=== PATIENT | male | born 1990 | race African-American/Black ===

== ENCOUNTER 2020-02-07 12:29 | Emergency (ER) | payer OTHER ==
[~2020-02-07] VITALS: Ht 167.6 cm; Wt 108.9 kg
[2020-02-07] MEDS ORDERED: PREDNISONE 20 M20 MG PO (13:30)
[2020-02-07] MEDS ORDERED: PROAIR HFA8.5 GM INH (13:30)
[2020-02-07 15:11] LABS: BASOPHILS 0.7 % (0.0-2.0); HEMOGLOBIN 15.2 gm/dL (14.0-18.0)
[2020-02-07 15:13] LABS: EOSINOPHILS 3.6 % (0.0-3.0); MCH 30.8 pg (26.0-34.0); MCHC 33.1 g/dL (28.0-37.0); MONOCYTES 11.8 % (1.0-8.0); PLATELET COUNT 253 thou/uL (150-400); POLYS 38.9 % (36.0-66.0); RBC 4.95 mil/uL (4.50-6.00); RDW 14.2 % (10.5-14.5)
[2020-02-07 15:17] LABS: ANION GAP 9 mmol/L (7-16); BUN 9 mg/dL (7-18); CALCIUM 9.1 mg/dL (8.5-10.1); CHLORIDE 105 mmol/L (98-107); CO2 28 mmol/L (21-32); GLUCOSE 91 mg/dL (74-106); POTASSIUM 4.8 mmol/L (3.5-5.1); SODIUM 142 mmol/L (136-145)
[2020-02-07] MEDS ORDERED: INDOMETHACIN 2525 MG PO (15:22)
[2020-02-07 15:26] LABS: ALBUMIN 3.6 g/dL (3.4-5.0); SGOT 15 U/L (15-37); SGPT 29 U/L (30-65); TOTAL BILIRUBIN 0.6 mg/dL (0.2-1.0); TOTAL PROTEIN 7.5 g/dL (6.4-8.2); TROPONIN-I <0.06 ng/mL (<0.06)
--- NOTE | 2020-02-07 15:33 | EKG ---
[facility] [address] [place] [address] ELECTROCARDIOGRAM REPORT Name: MAX LANDAVERDE Room #: [facility] M.RAlex#: [id number] Admission: Attend Phys: Discharge: Date of : [birth year] Report #: [id number] <ELECTRONICALLY SIGNED> By: Gus Johnson MD, FACC 02/07/20 1533 10 1311 Gus Johnson MD, FACC /EPI
[2020-02-07] MEDS ORDERED: ATIVAN0.5 M1 PO (15:36)
[2020-02-07 15:47] VITALS: BP 129/87
== END 2020-02-07 15:47 | disposition home or self-care (01) ==
LOC: ER 12:29
PROVIDERS: Physician Assistant
DX: U07.1 COVID-19 (principal); R07.89 Other chest pain; Z91.010 Allergy to peanuts; Z91.013 Allergy to seafood

== ENCOUNTER 2020-02-14 07:54 | Emergency (ER) | payer OTHER ==
[~2020-02-14] VITALS: Ht 167.6 cm; Wt 108.0 kg
[~2020-02-14 07:54] MED LIST: ATIVAN0.5 M1 PO; INDOMETHACIN 2525 MG PO; PREDNISONE 20 M20 MG PO; PROAIR HFA8.5 GM INH
[2020-02-14 08:58] LABS: ABSOLUTE NEUTROPHILS 11.1 thou/uL (1.4-8.2); BASOPHILS 0.2 % (0.0-2.0); HEMATOCRIT 43.4 % (42.0-52.0); HEMOGLOBIN 14.3 gm/dL (14.0-18.0); LYMPHOCYTES 13.2 % (24.0-44.0); MCH 30.2 pg (26.0-34.0); MCV 91.5 fL (80.0-100.0); MONOCYTES 8.5 % (1.0-8.0); PLATELET COUNT 319 thou/uL (150-400); POLYS 78.1 % (36.0-66.0); RBC 4.74 mil/uL (4.50-6.00); RDW 14.2 % (10.5-14.5); WBC 14.3 thou/uL (4.0-11.0)
--- NOTE | 2020-02-14 09:22 | EKG ---
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 : 1990 Requested By: Rios Guaman Order Number: [id number] MD: Gus Johnson Measurements Intervals [place] Rate: 83 P: 19 [place]: 166 QRS: 60 QRSD: 103 T: 12 QT: 347 QTc: 408 Interpretive Statements Sinus rhythm Baseline wander in lead(s) I,II,aVR Compared to ECG 02/07/2020 13:11:45 ST (T wave) deviation no longer present Electronically Signed On 02-14-2020 9:22:49 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
[2020-02-14 09:25] LABS: ANION GAP 12 mmol/L (7-16); BUN 10 mg/dL (7-18); CALCIUM 9.1 mg/dL (8.5-10.1); CHLORIDE 104 mmol/L (98-107); CO2 25 mmol/L (21-32); CREATININE 0.9 mg/dL (0.7-1.3); GLUCOSE 102 mg/dL (74-106); POTASSIUM 4.1 mmol/L (3.5-5.1); SODIUM 141 mmol/L (136-145)
[2020-02-14 09:32] LABS: TROPONIN-I <0.06 ng/mL (<0.06)
[2020-02-14] MEDS ORDERED: ZPAK PO (10:58)
[2020-02-14 11:07] VITALS: BP 135/72
== END 2020-02-14 11:15 | disposition home or self-care (01) ==
LOC: ER 07:54
PROVIDERS: Emergency Medicine
DX: J18.1 Lobar pneumonia, unspecified organism (principal); M54.2 Cervicalgia; Z79.899 Other long term (current) drug therapy; Z91.013 Allergy to seafood; Z91.010 Allergy to peanuts

== ENCOUNTER 2020-02-18 17:06 | Emergency (ER) | payer OTHER ==
[~2020-02-18] VITALS: Ht 167.6 cm; Wt 108.0 kg
[~2020-02-18 17:06] MED LIST changes: +ZPAK PO
[2020-02-18 20:01] LABS: ABSOLUTE NEUTROPHILS 6.4 thou/uL (1.4-8.2); BASOPHILS 0.6 % (0.0-2.0); EOSINOPHILS 4.1 % (0.0-3.0); LYMPHOCYTES 23.6 % (24.0-44.0); MCH 30.7 pg (26.0-34.0); MCHC 33.3 g/dL (28.0-37.0); MCV 92.2 fL (80.0-100.0); MONOCYTES 10.5 % (1.0-8.0); PLATELET COUNT 329 thou/uL (150-400); POLYS 61.2 % (36.0-66.0); RBC 4.88 mil/uL (4.50-6.00); RDW 14.5 % (10.5-14.5); WBC 10.4 thou/uL (4.0-11.0)
[2020-02-18 20:07] LABS: CALCIUM 9.5 mg/dL (8.5-10.1); CREATININE 1.2 mg/dL (0.7-1.3); POTASSIUM 4.3 mmol/L (3.5-5.1)
[2020-02-18 20:12] LABS: ALBUMIN 3.2 g/dL (3.4-5.0); TOTAL BILIRUBIN 0.5 mg/dL (0.2-1.0); TOTAL PROTEIN 7.5 g/dL (6.4-8.2)
[2020-02-18] MEDS ORDERED: KEFLEX500 M1 PO (20:38)
[2020-02-18] MEDS ORDERED: BACTRIM DS TAB1 EACH PO (20:38)
[2020-02-18] MEDS ORDERED: HIBICLENS118 ML TOP (20:38)
[2020-02-18 20:43] VITALS: BP 142/86
[2020-02-18] MEDS ORDERED: NORCO 5-325 TA1 EAC2 PO (21:02)
== END 2020-02-18 20:43 | disposition home or self-care (01) ==
LOC: ER 17:06
PROVIDERS: Physician Assistant
DX: L02.415 Cutaneous abscess of right lower limb (principal); L03.115 Cellulitis of right lower limb; F12.90 Cannabis use, unspecified, uncomplicated; Z91.010 Allergy to peanuts; Z91.013 Allergy to seafood; Z79.899 Other long term (current) drug therapy